=== PATIENT | male | born 1970 | race Caucasian/White ===

== ENCOUNTER 2020-08-09 14:26 | Emergency (ER) | payer OTHER ==
[2020-08-09] MEDS ORDERED: diphenhydrAMINE 50 MG/ML SDV IVPUSH ONE (14:56)
[2020-08-09] MEDS ORDERED: methylPREDNISolone Sodium Succinate 125 MG/2 ML SDV IVPUSH ONE (14:56)
[2020-08-09] MEDS ORDERED: Famotidine 20 MG/2 ML SDV IVPUSH ONE (14:56)
[2020-08-09] MEDS ORDERED: Ketorolac 30 MG/ML SDV IVPUSH ONE (14:56)
--- NOTE | 2020-08-09 15:02 | EDM.PDOC ---
ED HPI GENERAL MEDICAL PROBLEM - General Chief Complaint: ENT Problem Stated Complaint: DYSPHAGIA Time Seen by Provider: 08/09/20 14:48 Source of Information: Reports: Patient, RN Notes Reviewed, Significant Other (girlfriend) History Limitations: Reports: No Limitations - History of Present Illness INITIAL COMMENTS - FREE TEXT/NARRATIVE: Patient is a 50-year-old male who presents to the ED for the evaluation of his sore throat. The patient is having difficulty talking to us due to the pain, so most of the history is given per his girlfriend. The patient bit his cheek a f ew days ago, and she noticed some sores in his mouth, that she equated to be canker sores as this is what he has had in the past. She tried some canker sore topical treatment on this area, and he was able to eat last night, but today he developed some oral pharyngeal swelling, and he feels like his tongue was swelling up. He is not having any shortness of breath, cough, headache, body aches, fevers or chills, nausea or vomiting or diarrhea. Patient states it does hurt pretty good to swallow. He notes it feels like razor blades when he is swallowing. Patient does have pretty poor dentition, and he states he was to go see the dentist tomorrow as well. He took some Tylenol for the swelling and pain but notes none of this really helped much. Patient's temperature at time of triage is 99.0 F, he is in no respiratory distress, respiratory rate is 16. O2 sats are 97% on room air. He is not been around anyone that has been sick. Oral/Mouth Pain Score (Numeric/FACES): 9 - Related Data Allergies Allergy/AdvReac Type Severity Reaction Status Date / Time No Known Allergies Allergy Verified 08/09/20 14:39 Home Meds: Home Meds Rosuvastatin [Crestor] 10 mg PO DAILY 08/09/20 [History] Valsartan/Hydrochlorothiazide [Valsartan-Hctz 80-12.5 mg Tab] 1 tab PO DAILY 08/09/20 [History] Past Medical History HEENT History: Reports: Impaired Vision Cardiovascular History: Reports: Hypertension - Past Surgical History HEENT Surgical History: Reports: Naso-Sinus Surgery Social & Family History - Tobacco Use Smoking Status *Q: Current Every Day Smoker Years of Tobacco use: 10 Packs/Tins Daily: 1 - Caffeine Use Caffeine Use: Reports: Coffee - Recreational Drug Use Recreational Drug Use: No ED ROS ENT - Review of Systems Review Of Systems: Comprehensive ROS is negative, except as noted in HPI. ED EXAM, ENT - Physical Exam Exam: See Below Exam Limited By: No Limitations General Appearance: Alert, WD/WN, No Apparent Distress Mouth/Throat: Normal Inspection, Normal Gums, Normal Lips, Oral Ulcers (noted to left posterior cheek surface), Throat Pain, Tongue Swelling (to left side of tongue). No: Dental Tenderness, Trismus, Uvular Deviation Neck: Lymphadenopathy (L) (several shoddy nodes apparent on palpation), Lymphadenopathy (R) (several shoddy nodes apparent on palpation) Respiratory/Chest: No Respiratory Distress, Lungs Clear, Normal Breath Sounds, No Accessory Muscle Use, Chest Non-Tender Cardiovascular: Normal Peripheral Pulses, Regular Rate, Rhythm, No Murmur Extremities: Normal Inspection, Normal Capillary Refill Neurological: Alert, Oriented, Normal Cognition, No Motor/Sensory Deficits Psychiatric: Normal Affect, Normal Mood Skin: Warm, Dry, Intact, Normal Color, No Rash Course - Vital Signs Last Recorded V/S: Last Vital Signs Temp 99.0 F 08/09/20 14:35 Pulse 79 08/09/20 15:45 Resp 16 08/09/20 15:45 BP 148/96 H 08/09/20 15:45 Pulse Ox 96 08/09/20 15:45 - Orders/Labs/Meds Orders: Active Orders 24 hr Category Date Time Status CULTURE STREP A CONFIRMATION [] Stat Lab 08/09/20 15:08 Results STREP SCRN A RAPID W CULT CONF [] Stat Lab 08/09/20 14:56 Ordered Amoxicillin/Clavulanate K [Augmentin 875 MG/125 MG] Med 08/09/20 15:50 Once 1 tab PO ONETIME ONE Labs: Laboratory Tests 08/09/20 Range/Units 14:40 WBC 20.64 H (4.23-9.07) K/mm3 RBC 5.12 (4.63-6.08) M/mm3 Hgb 17.2 (13.7-17.5) gm/dl Hct 47.8 (40.1-51.0) % MCV 93.4 H (79.0-92.2) fl MCH 33.6 H (25.7-32.2) pg MCHC 36.0 H (32.2-35.5) g/dl RDW Std Deviation 43.0 (35.1-43.9) fL Plt Count 311 (163-337) K/mm3 MPV 8.3 L (9.4-12.3) fl Neut % (Auto) 82.4 H (34.0-67.9) % Lymph % (Auto) 9.9 L (21.8-53.1) % Hettinger % (Auto) 7.1 (5.3-12.2) % Eos % (Auto) 0.2 L (0.8-7.0) Baso % (Auto) 0.1 (0.1-1.2) % Neut # (Auto) 17.00 H (1.78-5.38) K/mm3 Lymph # (Auto) 2.05 (1.32-3.57) K/mm3 Hettinger # (Auto) 1.47 H (0.30-0.82) K/mm3 Eos # (Auto) 0.04 (0.04-0.54) K/mm3 Baso # (Auto) 0.02 (0.01-0.08) K/mm3 Manual Slide Review Abnormal smear Meds: Medications Discontinued Medications Generic Name Dose Route Start Last Admin Trade Name Freq PRN Reason Stop Dose Admin Diphenhydramine HCl 25 mg 08/09/20 14:56 08/09/20 15:10 Benadryl IVPUSH 08/09/20 14:57 25 mg ONETIME ONE Administration Famotidine 20 mg 08/09/20 14:56 08/09/20 15:14 Pepcid IVPUSH 08/09/20 14:57 20 mg ONETIME ONE Administration Ketorolac Tromethamine 30 mg 08/09/20 14:56 08/09/20 15:09 Toradol IVPUSH 08/09/20 14:57 30 mg ONETIME ONE Administration Methylprednisolone Sodium Succinate 125 mg 08/09/20 14:56 08/09/20 15:12 Solu-Medrol IVPUSH 08/09/20 14:57 125 mg ONETIME ONE Administration - Re-Assessments/Exams Free Text/Narrative Re-Assessment/Exam: 08/09/20 15:02 Patient presents to the ED for the evaluation of his sore throat and difficulty swallowing. As he has not tried this canker sore relief topical ointment in the past, this very well could be a local allergic reaction. We will give him some Benadryl, sign Medrol and Pepcid for initial management. He does have quite a few lymph nodes that are inflamed on his bilateral chin line. And he does have a mild fever at this ER visit, I would suspect more of a soft tissue infection compounding some of these issues. He will likely be placed on amoxicillin on outpatient basis and have him follow-up with her regular provider if he gets relief of his symptoms today. 08/09/20 15:51 The patient's white blood cell count is elevated at over 20,000, with a di scernible left shift on the auto differential. He does report some relief of symptoms with the Benadryl and Solu-Medrol. He would like to go home at this time, I will provide him with prescription for Augmentin and have him follow-up with his primary care provider sometime this week for recheck and to make sure things getting better as expected. Patient verbalized understanding. Departure - Departure Time of Disposition: 15:51 Disposition: Home, Self-Care 01 Condition: Good Clinical Impression: Oral abscess, Acute pain of mouth, Cervical lymphadenopathy - Discharge Information *PRESCRIPTION DRUG MONITORING PROGRAM REVIEWED*: No *COPY OF PRESCRIPTION DRUG MONITORING REPORT IN PATIENT HUGH: No Instructions: Pharyngitis, [id number] Referrals: Nacho Ta MD [Primary Care Provider] - Forms: ED Department Discharge Additional Instructions: you have been evaluated in the ED for your mouth pain. You have been provided with a script for Augmentin. This was electronically sent to [facility] pharmacy located near [place]. Please take this medication as directed. (1 tab twice daily for 7 days or until gone). This antibiotic can cause diarrhea, recommend that you start a probiotic while taking this medication. Aleve provides good pain relief for dental pain. Please take 1-2 tabs twice daily as needed for pain. You were given a prescription for Naprosyn, Please take 1 tab every 12 hours for pain relief. You may use hot pack/ ice packs to the affected area as tolerated in 15-20 minute intervals. You may also take Benadryl, 25 mg every 4-6 hours as needed for further swelling relief. It is unsure at this time if you were actually allergic to the canker sore medicine you were given today, I would recommend that you do not use this going further from here, to make sure that this was not part of the reason your mouth was so swollen. Your symptoms today may have been caused by an open sore in your mouth when you bit your cheek, which allowed infection to spread. Your strep screen at the time of triage was negative, but this was be sent for culture, will be called when this results, however you have already been placed on antibiotics that will provide appropriate coverage if the strep culture is positive. Please return to the ED if your symptoms change or worsen. Sepsis Event Note (ED) - Evaluation Sepsis Screening Result: No Definite Risk - Focused Exam Vital Signs: Vital Signs Temp Pulse Resp BP Pulse Ox 08/09/20 15:45 79 16 148/96 H 96 08/09/20 14:35 99.0 F 91 16 153/103 H 97 - My Orders Last 24 Hours: My Active Orders 08/09/20 14:56 STREP SCRN A RAPID W CULT CONF [RM] Stat 08/09/20 15:08 CULTURE STREP A CONFIRMATION [RM] Stat 08/09/20 15:50 Amoxicillin/Clavulanate K [Augmentin 875 MG/125 MG] 1 tab PO ONETIME ONE - Assessment/Plan Last 24 Hours: My Active Orders 08/09/20 14:56 STREP SCRN A RAPID W CULT CONF [RM] Stat 08/09/20 15:08 CULTURE STREP A CONFIRMATION [RM] Stat 08/09/20 15:50 Amoxicillin/Clavulanate K [Augmentin 875 MG/125 MG] 1 tab PO ONETIME ONE
[2020-08-09] MEDS ORDERED: Amoxicillin/Clavulanate K 875-125 MG Tab PO ONE (15:50)
== END 2020-08-09 16:11 | disposition home or self-care (01) ==
LOC: JD.ED 14:26
DX: K12.2 Cellulitis and abscess of mouth (principal); I10 Essential (primary) hypertension; F17.210 Nicotine dependence, cigarettes, uncomplicated; Z79.899 Other long term (current) drug therapy
CPT/HCPCS: 36415; 85025; 87081; 87430; 96374; 96375; 99283; A9270; J1200; J1885; J2930; J3490

== ENCOUNTER 2020-08-10 16:06 | Emergency (ER) | payer OTHER ==
--- NOTE | 2020-08-10 16:24 | EDM.PDOC ---
ED HPI GENERAL MEDICAL PROBLEM - General Chief Complaint: ENT Problem Stated Complaint: TONGUE SWELLING Time Seen by Provider: 08/10/20 16:18 - History of Present Illness INITIAL COMMENTS - FREE TEXT/NARRATIVE: 50-year-old male presents the emergency room with recurrent swelling of his tongue and the left side of his face. Patient was seen here yesterday thought to have an infection and here was started on Augmentin was initially treated with Solu-Medrol Benadryl and famotidine he did get initially but over the course today his swelling actually came back. He is not as bad as he was yesterday but he feels this is getting worse at this time. He is clearing fluids without difficulty but larger solids are sometimes difficult. What he is experiencing now is very similar to what he experienced yesterday albeit not as severe. - Related Data Allergies Allergy/AdvReac Type Severity Reaction Status Date / Time No Known Allergies Allergy Verified 08/10/20 16:16 Home Meds: Home Meds Amoxicillin/Clavulanate K [Augmentin 875-125 MG] 1 tab PO BID #14 tablet 08/09/20 [Rx] Rosuvastatin [Crestor] 10 mg PO DAILY 08/09/20 [History] Valsartan/Hydrochlorothiazide [Valsartan-Hctz 80-12.5 mg Tab] 1 tab PO DAILY 08/09/20 [History] Famotidine [Acid Controller] 20 mg PO BID #30 tablet 08/10/20 [Rx] predniSONE [Prednisone] 60 mg PO ASDIRECTED #12 tablet 08/10/20 [Rx] Past Medical History HEENT History: Reports: Impaired Vision Cardiovascular History: Reports: Hypertension - Past Surgical History HEENT Surgical History: Reports: Naso-Sinus Surgery Social & Family History - Tobacco Use Tobacco Use Status *Q: Current Every Day Tobacco User Years of Tobacco use: 10 Packs/Tins Daily: 1 - Caffeine Use Caffeine Use: Reports: Coffee - Recreational Drug Use Recreational Drug Use: No ED ROS GENERAL - Review of Systems Review Of Systems: See Below Constitutional: Reports: No Symptoms HEENT: Reports: Other (Tongue swelling and to a lesser degree throat) Respiratory: Reports: No Symptoms. Denies: Shortness of Breath, Wheezing, Cough Cardiovascular: Reports: No Symptoms Endocrine: Reports: No Symptoms GI/Abdominal: Reports: No Symptoms : Reports: No Symptoms Musculoskeletal: Reports: No Symptoms ED EXAM, GENERAL - Physical Exam Exam: See Below Exam Limited By: No Limitations General Appearance: Alert, No Apparent Distress, Other (He has some left-sided facial swelling) Eye Exam: Bilateral Eye: Normal Inspection Ears: Normal External Exam, Normal Canal, Hearing Grossly Normal, Normal TMs Throat/Mouth: Other (Left-sided tongue swelling) Head: Facial Swelling (Facial swelling is noted and he also has some erythema that is mild associated with this.) Neck: Other (Left-sided swelling and minimal erythema). No: Full Range of Motion (Going up and), Lymphadenopathy (R) Respiratory/Chest: No Respiratory Distress, Lungs Clear, Normal Breath Sounds Cardiovascular: Regular Rate, Rhythm, No Edema, No Murmur GI/Abdominal: Normal Bowel Sounds, Soft, Non-Tender Back Exam: Normal Inspection. No: CVA Tenderness (L), CVA Tenderness (R) Extremities: Normal Inspection, No Pedal Edema Neurological: Alert, Oriented, Normal Cognition Course - Vital Signs Last Recorded V/S: Last Vital Signs Temp 37.2 C 08/10/20 16:13 Pulse 80 08/10/20 16:13 Resp 12 08/10/20 16:13 BP 149/98 H 08/10/20 16:13 Pulse Ox 100 08/10/20 16:13 - Orders/Labs/Meds Meds: Medications Discontinued Medications Generic Name Dose Route Start Last Admin Trade Name Pina PRN Reason Stop Dose Admin Diphenhydramine HCl 50 mg 08/10/20 16:31 08/10/20 16:40 Benadryl IVPUSH 08/10/20 16:32 50 mg ONETIME ONE Administration Famotidine 40 mg 08/10/20 16:31 08/10/20 16:43 Pepcid IVPUSH 08/10/20 16:32 40 mg ONETIME ONE Administration Methylprednisolone Sodium Succinate 125 mg 08/10/20 16:30 08/10/20 16:41 Solu-Medrol IVPUSH 08/10/20 16:31 125 mg ONETIME ONE Administration - Re-Assessments/Exams Free Text/Narrative Re-Assessment/Exam: 08/10/20 17:27 Patient was treated with IV Solu-Medrol 125 mg 40 mg of famotidine and 50 mg of Benadryl he is already noticing noticeable improvement. 08/10/20 20:22 Patient continues to improve however he is not quite 50% better yet however we will get him discharged at this point after discussion with the patient. Departure - Departure Time of Disposition: 20:22 Disposition: Home, Self-Care 01 Clinical Impression: Allergic reaction - Discharge Information Referrals: Nacho Ta MD [Primary Care Provider] - Forms: ED Department Discharge Additional Instructions: Return to the emergency room with any questions problems or worsening symptoms. Tonight hand picker the prednisone from [facility] in [place] and take first thing in the morning as directed. Also hand picker famotidine, this is the generic for Pepcid you will take 1 twice daily for the next 2 weeks. Use Benadryl 25 mg every 6 hours as needed. Continue the Augmentin as started yesterday. Sepsis Event Note (ED) - Evaluation Sepsis Screening Result: No Definite Risk - Focused Exam Vital Signs: Vital Signs Temp Pulse Resp BP Pulse Ox 08/10/20 16:13 37.2 C 80 12 149/98 H 100
[2020-08-10] MEDS ORDERED: methylPREDNISolone Sodium Succinate 125 MG/2 ML SDV IVPUSH ONE (16:30)
[2020-08-10] MEDS ORDERED: Famotidine 20 MG/2 ML SDV IVPUSH ONE (16:31)
[2020-08-10] MEDS ORDERED: diphenhydrAMINE 50 MG/ML SDV IVPUSH ONE (16:31)
== END 2020-08-10 20:44 | disposition home or self-care (01) ==
LOC: JD.ED 16:06
DX: T78.40XA Allergy, unspecified, initial encounter (principal); I10 Essential (primary) hypertension; F17.210 Nicotine dependence, cigarettes, uncomplicated; Z79.899 Other long term (current) drug therapy
CPT/HCPCS: 96374; 96375; 99283; J1200; J2930; J3490